=== PATIENT | male | born 1945 | race Caucasian/White ===

== ENCOUNTER 2016-03-21 12:52 | Day surgery (SDC) | payer OTHER, BC ==
[2016-03-21] MEDS ORDERED: TRIAMCINOLONE ACETONIDE 200 MG/5 ML MDV IM ONE (15:11)
[2016-03-21] MEDS ORDERED: IOPAMIDOL (ISOVUE-M 300) 15 ML VIAL IV ONE (15:11)
--- NOTE | 2016-03-21 16:47 | IR ---
Left L3 and L5 transforaminal epidural steroid injection, and selective nerve root block INDICATION: Recurrence of left-sided pain. Patient has had prior injections multiple times by Dr. Meena Sims with excellent relief of pain. Repeat injection needed. Informed consent: Obtained from the patient. Risks and benefits were discussed. Patient states that the pain is identical to what he had previously. I had a procedure report from Dr. Sims, and my int ention is to repeat what she did before. Crosscutting Measure: Patient's current list of medications including all known prescriptions, over- the-counters, herbals, and vitamin/mineral/dietary supplements are reviewed. Medications' name, dosa ge, frequency, and route of administration are confirmed. The patient is a non-smoker. Prophylactic Antibiotic: Cefazolin was not ordered and administered for antimicrobial prophylaxis be cause it was not medically necessary. VTE Prophylaxis: There is not an order for VTE prophylaxis to be given within 24 hours of the proced ure end time. VTE prophylaxis was not given because it was not medically necessary. Technique: Patient was placed in prone position. A "timeout" procedure was performed to identify th e correct patient and the correct procedure. 1% Xylocaine was used for local anesthetic. All eleme nts of maximal sterile barrier technique including cap, mask, sterile gown, sterile gloves, large kassidy rile sheet, hand hygiene, and 2% chlorhexidine for cutaneous antisepsis, followed. Using 22-gauge spinal needle, intrapedicular approach, left L3 and subsequently left L5 transforamina l approach was chosen with advancement of the needle until contrast injection delineates the neural f oramina. For both levels, there is a trickle of contrast going to the epidural space. At both levels, 60 mg of Kenalog and 1% Xylocaine, 3 mL, were subsequently administered. There is ines e reproduction of pain with injection. Fluoroscopy: 3.5 minutes, 3 images Medication: Local anesthetic only. Impression: Left L5 and L3 transforaminal epidural steroid injection, and selective nerve root block performed as above.
== END 2016-03-21 14:35 | disposition home or self-care (01) ==
LOC: FIMAGING 12:52
PROVIDERS: ATTEND Physician Assistant
PROC: 3E0S33Z Introduction of Anti-inflammatory into Epidural Space, Percutaneous Approach (ICD-10-PCS; principal; 2016-03-21)
DX: M54.16 Radiculopathy, lumbar region (principal)
CPT/HCPCS: J3301; Q9967

== ENCOUNTER → 2016-07-04 | Day surgery (SDC) | payer OTHER, BC ==
[~2016-07-04] MED LIST: IOPAMIDOL (ISOVUE-M 300) 15 ML VIAL IV ONE; LIDOCAINE 1% 30 ML SDV ONE; TRIAMCINOLONE ACETONIDE 200 MG/5 ML MDV IM ONE
== END | disposition home or self-care (01) ==
LOC: FIMAGING 14:03
PROVIDERS: ATTEND Anesthesiology Pain Medicine
DX: M54.16 Radiculopathy, lumbar region (principal)
CPT/HCPCS: J3301; Q9967

== ENCOUNTER → 2016-08-02 | Outpatient (CLI) | payer OTHER, BC | LOC: FIMAGING 10:46 | DX: M51.36 Other intervertebral disc degeneration, lumbar region (principal) ==